=== PATIENT | female | born 1995 | race African-American/Black ===

== ENCOUNTER 2022-09-24 20:16 | Emergency (ER) | payer BC ==
[~2022-09-24] VITALS: Ht 160 cm; Wt 113.4 kg
[2022-09-25] MEDS ORDERED: CEFTRIAXONE 1 GM VIAL IM ONE (00:45)
[2022-09-25] MEDS ORDERED: LIDOCAINE HCL 1% LOCAL INJ 20 ML VIAL ONE (00:48)
[2022-09-25] MEDS ORDERED: CEFTRIAXONE 1 GM VIAL ONE (00:48)
[2022-09-25 00:50] VITALS: BP 156/89
[2022-09-25] MEDS ORDERED: CLEOCIN HCL300 MG PO (01:01)
== END 2022-09-25 01:10 | disposition home or self-care (01) ==
LOC: FSED 20:26
DX: L02.416 Cutaneous abscess of left lower limb (principal); J45.909 Unspecified asthma, uncomplicated; I10 Essential (primary) hypertension; Z88.8 Allergy status to other drugs, medicaments and biological substances
CPT/HCPCS: 10060; 96372; 99283; J0696; J2001

== ENCOUNTER 2022-11-28 20:31 | Emergency (ER) | payer BC ==
[~2022-11-28] VITALS: Ht 160 cm; Wt 112.5 kg
[~2022-11-28 20:31] MED LIST: CLEOCIN HCL300 MG PO
[2022-11-28] MEDS ORDERED: CEFDINIR300 MG PO (21:21)
== END 2022-11-28 21:41 | disposition home or self-care (01) ==
LOC: FSED 20:50
DX: O23.11 Infections of bladder in pregnancy, first trimester (principal); O16.1 Unspecified maternal hypertension, first trimester; O26.891 Other specified pregnancy related conditions, first trimester; J45.909 Unspecified asthma, uncomplicated; Z88.8 Allergy status to other drugs, medicaments and biological substances
CPT/HCPCS: 81003; 81025; 99282